=== PATIENT | female | born 1955 | race Caucasian/White ===

== ENCOUNTER 2021-03-30 12:30 | Outpatient (RCR) | payer MEDICARE, MEDICAID, SELFPAY ==
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
== END 2021-03-30 19:00 | disposition home or self-care (01) ==
LOC: PT 12:30
PROVIDERS: PCP Student in an Organized Health Care Education/Training Program; Referring Provider Student in an Organized Health Care Education/Training Program; Visit Provider Student in an Organized Health Care Education/Training Program
DX: M17.12 Unilateral primary osteoarthritis, left knee (principal)
CPT/HCPCS: 97113; 97161